=== PATIENT | female | born 1970 | race Asian ===

== ENCOUNTER 2016-10-13 13:55 | Outpatient (CLI) | payer OTHER | END 2016-10-13 15:00 | disposition home or self-care (01) | LOC: RAD 13:55 | DX: M54.12 Radiculopathy, cervical region (principal) ==

== ENCOUNTER 2016-10-20 09:17 | Outpatient (CLI) | payer OTHER | END 2016-10-20 19:44 | disposition home or self-care (01) | LOC: MRI 09:17 | DX: M54.12 Radiculopathy, cervical region (principal) ==